=== PATIENT | female | born 1985 | race Two or more races ===

== ENCOUNTER 2019-05-16 22:17 | Inpatient (IN) | payer BC, SELFPAY ==
[2019-05-16] VITALS (27 sets, daily range): BP systolic 111–170; BP diastolic 63–116; PULSE 87–115; O2SAT 99–100; BMI 28.5
[2019-05-16] MEDS: LACTATED RINGERS 1,000 ML 125 ML IV CONT ×2 (22:39→23:01)
[2019-05-16 22:51] LABS: Basophils Percent Auto 0.3 % (0.2-1.2); Eosinophils Absolute Auto 0.1 K/mm3 (0-0.3); Eosinophils Percent Auto 0.5 % (0-4.4); Hematocrit 32.1 % (37.0-47.0); Hemoglobin 10.7 g/dL (12.0-15.0); Immature Granulocyte Absolute 0.16 K/mm3 (0.00-0.031); Immature Granulocyte Percent A 1.7 % (0-0.5); Lymphocytes Absolute Auto 1.71 K/mm3 (0.9-3.2); Mean Corpuscular HGB Conc 33.3 g/dl (32-36); Mean Corpuscular Hemoglobin 29.6 pg (26-34); Mean Corpuscular Volume 88.7 fl (80-100); Mean Platelet Volume 9.8 fl (7.4-10.4); Monocytes Absolute Auto 0.5 K/mm3 (0.1-0.6); Monocytes Percent Auto 5.7 % (2.6-8.5); Neutrophils Percent Auto 73.8 % (45.5-73.1); Platelet Count Result 230 k/mm3 (150-375); Red Blood Count 3.62 M/mm3 (4.2-5.4); Red Cell Distribution Width 13.6 % (11.5-14.5); White Blood Count 9.5 K/mm3 (4.5-10.0)
--- NOTE | 2019-05-16 23:02 | WPDANESEPP ---
Anes - Eval Pre Procedure Procedure: labor epidural Date/Time: 05/16/19 23:02 Surgeon: Harshad Moulton Preop Diagnosis: Abdominal pain with contractions Pre Op Diagnosis: contractions Patient Data Age: 33 Gender: F Height: 5 ft 1 in Weight: 68.5 kg Allergies Allergy/AdvReac Type Severity Reaction Status Date / Time No Known Allergies Allergy Verified 04/25/19 12:44 Home Medications Medication Instructions Recorded Confirmed Type PNV cmb#95-ferrous fumarate-FA 1 tablet PO DAILY 04/25/19 04/25/19 History [] Laboratory Tests 05/16/19 05/16/19 05/16/19 22:38 22:38 22:38 WBC 9.5 K/mm3 K/mm3 (4.5-10.0) RBC 3.62 M/mm3 L M/mm3 (4.2-5.4) Hgb 10.7 g/dL L g/dL (12.0-15.0) Hct 32.1 % L % (37.0-47.0) MCV 88.7 fl fl (80-100) MCH 29.6 pg pg (26-34) MCHC 33.3 g/dl g/dl (32-36) RDW 13.6 % % (11.5-14.5) Plt Count 230 k/mm3 k/mm3 (150-375) MPV 9.8 fl fl (7.4-10.4) Immature Gran % (Auto) 1.7 % H % (0-0.5) Neut % (Auto) 73.8 % H % (45.5-73.1) Lymph % (Auto) 18.0 % L % (18.3-44.2) Chambers % (Auto) 5.7 % % (2.6-8.5) Eos % (Auto) 0.5 % % (0-4.4) Baso % (Auto) 0.3 % % (0.2-1.2) Lymph # (Auto) 1.71 K/mm3 K/mm3 (0.9-3.2) Chambers # (Auto) 0.5 K/mm3 K/mm3 (0.1-0.6) Eos # (Auto) 0.1 K/mm3 K/mm3 (0-0.3) Baso # (Auto) 0.0 K/mm3 K/mm3 (0.0-0.1) Abs Immat Gran (auto) 0.16 K/mm3 H K/mm3 (0.00-0.031) Absolute Neuts (auto) 7.0 K/mm3 H K/mm3 (1.3-6.7) Absolute Nucleated RBC 0.0 K/mm3 K/mm3 (0.0-0.012) Nucleated RBC % 0.0 % % (0.0-0.2) RPR Pending Rubella IgG Antibody Pending Patient hx anesthesia problems: none Family hx anesthesia problems: none PMFSH Past Medical History Medical History Over weight hypertension Surgical History Surgical History (Updated 05/16/19 @ 23:04 by Steven Henao CRNA) Previous section Family History Family History Other Unknown family medical history Social History Social History Substance use: never Spiritual care concerns: No Exam Day of Procedure 05/16/19 23:02 Patient weight: overweight Airway: Mallampati scale class II Neurological: alert and oriented
[2019-05-16 23:41] LABS: Rubella IgG Antibody 19.4 IU/ML
--- NOTE | 2019-05-16 23:44 | LDADM ---
This patient, Brina Islas, was admitted to Labor/Delivery/Recovery 102 on 05/16/19 at 22:17. Plans for labor, pain management and were discussed with patient. Patient/family oriented to hospital policies and general routines including ID bracelet, bed and alarms, visiting hours, pain management, procedures, bathroom and other care routines, personal items, smoking policy, room service/diet and guest tray routines, infant security routines, and visiting hours. Patient/Family are encouraged to report perceived risks to care and to ask questions if they do not understand what they are told or what they should do. See OBIX for further documentation.
[2019-05-17] VITALS (68 sets, daily range): BP systolic 83–151; BP diastolic 47–113; PULSE 89–163; RESP 16–20; TEMP 36.7–37.4; O2SAT 95–100
--- NOTE | 2019-05-17 00:16 | PM.IMHP ---
H&P: HPI History of Present Illness Chief complaint: contractions Narrative: Brina Islas is a 33 year old female whose last menstrual is unknown, EDC is 05/24/2019 presents at 39 weeks gestation in active labor. Since previous section and has requested vaginal after risks and benefits were reviewed Review of Systems Review of Systems: All systems reviewed & are unremarkable except as noted in HPI and below PMFSH Past Medical History Medical History Over weight hypertension Surgical History Surgical History Previous section Family History Family History Other Unknown family medical history Social History Social History Smoking status: Never smoker Second hand tobacco smoke exposure: No Substance use: never Spiritual care concerns: No Meds Home Medications and Allergies Home Medications Medication Instructions Recorded Confirmed Type PNV cmb#95-ferrous fumarate-FA 1 tablet PO DAILY 04/25/19 04/25/19 History [] Allergies Allergy/AdvReac Type Severity Reaction Status Date / Time No Known Allergies Allergy Verified 04/25/19 12:44 Vital Signs Vital Signs - 24 hr 05/16/19 23:04 05/16/19 23:07 05/16/19 23:09 Pulse Rate 96 102 H Blood Pressure 140/116 H 140/79 Pulse Oximetry 100 100 05/16/19 23:11 05/16/19 23:13 05/16/19 23:14 Pulse Rate 87 96 Blood Pressure 130/71 153/88 H Pulse Oximetry 99 05/16/19 23:15 05/16/19 23:18 05/16/19 23:19 Pulse Rate 105 H 99 Blood Pressure 170/88 H 153/82 H Pulse Oximetry 100 05/16/19 23:20 05/16/19 23:22 05/16/19 23:24 Pulse Rate 101 H 101 H Blood Pressure 146/86 H 136/111 H Pulse Oximetry 100 05/16/19 23:25 05/16/19 23:28 05/16/19 23:29 Pulse Rate 109 H 107 H Blood Pressure 136/63 111/93 H Pulse Oximetry 100 05/16/19 23:30 05/16/19 23:33 05/16/19 23:34 Pulse Rate 99 115 H Blood Pressure 125/91 H 115/78 Pulse Oximetry 100 05/16/19 23:36 05/16/19 23:37 05/16/19 23:39 Pulse Rate 112 H 102 H Blood Pressure 114/78 132/76 Pulse Oximetry 100 05/16/19 23:40 05/16/19 23:44 05/16/19 23:45 Pulse Rate 106 H 104 H Blood Pressure 121/72 129/75 Pulse Oximetry 100 05/16/19 23:49 05/16/19 23:54 05/16/19 23:59 Pulse Rate Blood Pressure Pulse Oximetry 100 100 100 05/17/19 00:00 05/17/19 00:04 05/17/19 00:09 Pulse Rate 110 H Blood Pressure 120/74 Pulse Oximetry 100 100 05/17/19 00:14 05/17/19 00:15 Pulse Rate 105 H Blood Pressure 121/70 Pulse Oximetry 100 Exam Const: General: no acute distress Eyes: General: appearance normal, both eyes and all related structures Neck: Neck: supple and no JVD Thyroid: thyroid normal Resp: Effort & Inspection: normal respiratory effort Auscultation: clear to auscultation bilaterally Cardio: Rate: regular rate Rhythm: regular rhythm GI: Inspection: normal to inspection (Gravid uterus with contractions every 2-3 minutes) : General: Yes other (Cervix is complete. Artificial rupture membranes is clear. FHTs reassurin) Skin: General skin exam: no rashes or lesions noted Extrem: General: normal to inspection and no edema Psych: Mental Status: mental status grossly normal Affect: normal affect H&P: Results Labs Labs: Short CBC 05/16/19 Range/Units 22:38 WBC 9.5 (4.5-10.0) K/mm3 Hgb 10.7 L (12.0-15.0) g/dL Hct 32.1 L (37.0-47.0) % Plt Count 230 (150-375) k/mm3 Assessment and Plan Additional Plan Impression: Term in active labor with previous section Plan: in progress. Epidural was in place
[2019-05-17] MEDS: LORATADINE 10 MG TABLET PO (00:26)
--- NOTE | 2019-05-17 03:09 | PM.OBPNVD ---
OB - PN: Subj Subjective Date/time seen: 05/17/19 03:09 Interval history: pushing x 2 hours unable to get past pubic bone offered c section OB - PN: Obj Data Labs CBC & Chem 7: 05/16/19 22:38 Labs: Laboratory Results - last 24 hr 05/16/19 05/16/19 05/16/19 22:38 22:38 22:38 WBC 9.5 RBC 3.62 L Hgb 10.7 L Hct 32.1 L MCV 88.7 MCH 29.6 MCHC 33.3 RDW 13.6 Plt Count 230 MPV 9.8 Immature Gran % (Auto) 1.7 H Neut % (Auto) 73.8 H Lymph % (Auto) 18.0 L Sunflower % (Auto) 5.7 Eos % (Auto) 0.5 Baso % (Auto) 0.3 Lymph # (Auto) 1.71 Sunflower # (Auto) 0.5 Eos # (Auto) 0.1 Baso # (Auto) 0.0 Abs Immat Gran (auto) 0.16 H Absolute Neuts (auto) 7.0 H Absolute Nucleated RBC 0.0 Nucleated RBC % 0.0 Rubella IgG Antibody 19.4 Blood Type A Positive Antibody Screen Negative OB - PN A/P Time Spent With Patient Time: Total time spent is greater than 50% in coordination of care (as documented) at patient's floor/unit and/or counseling patient:
[2019-05-17] MEDS: ceFAZolin 2 GM/D5W 50 ML 2 GM/50 ML BAG IVPB (03:36)
--- NOTE | 2019-05-17 04:15 | PM.PROC ---
Procedure Note - Detailed Date of procedure: 05/17/19 Pre-op diagnosis: contractions Surgeon: Anthony Otero MD Postop diagnosis: Failure to descend Anesthesia: Epidural Q BL: 460cc Findings: Female 7 lb 5 oz nuchal cord x1 Complications: None Description of procedure: Repeat low-transverse section. The patient was prepped and draped in the normal sterile fashion placed in the supine position. Under excellent epidural anesthesia the abdomen was entered through the previous Pfannenstiel incision and progressive layers of fascia. Fascia was incised in upward outward fashion bilaterally. Underlying muscles sharply dissected and parietal peritoneum elevated by Anju clamps. This was entered by sharp dissection. A fair amount of scar tissue was seen in the bladder was noted to be riding very high. Careful dissection allowed the bladder to be dissected caudally away from the cervix an incision. Bladder blade was placed in the low transverse incision made. The head then delivered in the BALBINA position. Nuchal cord check noted to be loose x1 rubella occiput. The anterior posterior shoulder then delivered spontaneously. Cord clamped x2 and cut and passed table given 9 and 9. Placenta was delivered intact manually. Uterus delivered on the abdomen and wrapped in a moist towel. After assuring no membranes or debris remained in the uterus, the uterus was closed with continuous running locking 0 Vicryl from lateral edge to lateral edge. This was followed by a 2nd running imbricating 0 Vicryl from lateral edge to lateral edge. Hemostasis was assured. Ovaries and tubes appeared within normal limits. The uterus returned to the abdomen. Laps removed and accounted for. The hysterotomy incision inspected 1 last time and noted be hemostatic. The fascia was closed with continuous running 0 Vicryl from lateral edge to midline bilaterally. The skin closed with 4 O Monocryl and glue. All sponge, needle, instrument counts were correct. There were no immediate complications
--- NOTE | 2019-05-17 07:24 | OBPPTRN ---
Patient transferred to post room # 287 via stretcher. Support person present. Oriented to unit, room, information board, rooming in, admission packet and security measures. Patient verbalizes understanding.
[2019-05-17] MEDS: KETOROLAC 30 MG/ML VIAL (*BKC) (07:37)
--- NOTE | 2019-05-17 08:10 | PC.NURSE ---
Consulted with patient, mother reports she breastfed first child and would like a refresher with new . Reviewed infant feeding cues, frequencies, duration of feedings, feeding elimination flow sheet, and signs of adequate intake. Demonstrated stimulation techniques to wake infant for feeding. Assisted with infant to breast. Reviewed positioning/alignment in football, holding breast in C hold and guided asymmetrical latch on. Discussed rational for each. was able to latch correctly. nursed eagerly, with steady draws and frequent swallowing noted. Reviewed signs of a correct latch, effective nursing and suck swallow ratio. Infant was able to maintain latch without discomfort to mother. Infant sleepy with pausing noted. Advised to stimulate to keep infant awake and nursing effectively. Nipple care reviewed. Instructed mother to call out for RN assistance if she is unable to latch infant for feeding or she has discomfort with nursing. Instructed feeding should be initiated three hours from start of last feeding or if feeding cues are noted before. Mother voiced understanding of information shared.
[2019-05-17] MEDS: DEXTROSE 5%/0.45% SOD CHL 1,000 ML 125 ML IV CONT (08:51)
[2019-05-17 09:51] LABS: Rapid Plasma Reagin Non-Reactive (NonReactive)
[2019-05-17] MEDS: DOCUSATE SODIUM 100 MG CAPSULE PO (17:04)
[2019-05-18] MEDS: IBUPROFEN 600 MG TABLET PO ×3 (00:08→17:22)
[2019-05-18 05:32] LABS: Basophils Percent Auto 0.1 % (0.2-1.2); Eosinophils Percent Auto 0.2 % (0-4.4); Hemoglobin 7.4 g/dL (12.0-15.0); Immature Granulocyte Absolute 0.14 K/mm3 (0.00-0.031); Immature Granulocyte Percent A 1.6 % (0-0.5); Lymphocytes Absolute Auto 1.73 K/mm3 (0.9-3.2); Lymphocytes Percent Auto 20.1 % (18.3-44.2); Mean Corpuscular HGB Conc 32.2 g/dl (32-36); Mean Corpuscular Volume 90.2 fl (80-100); Monocytes Absolute Auto 0.5 K/mm3 (0.1-0.6); Monocytes Percent Auto 5.7 % (2.6-8.5); Neutrophils Absolute Auto 6.2 K/mm3 (1.3-6.7); Neutrophils Percent Auto 72.3 % (45.5-73.1); Platelet Count Result 155 k/mm3 (150-375); Red Blood Count 2.55 M/mm3 (4.2-5.4); White Blood Count 8.6 K/mm3 (4.5-10.0)
--- NOTE | 2019-05-18 06:46 | PM.OBPNVD ---
OB - PN: Subj Subjective Date/time seen: 05/18/19 06:46 Interval history: pushing x 2 hours unable to get past pubic bone offered c section Patient comments: no complaints and pain well controlled baby status: doing well and nursing well OB - PN: Obj Data Labs CBC & Chem 7: 05/18/19 04:36 Labs: Laboratory Results - last 24 hr 05/16/19 05/18/19 22:38 04:36 WBC 8.6 RBC 2.55 L Hgb 7.4 L D Hct 23.0 L MCV 90.2 MCH 29.0 MCHC 32.2 RDW 14.0 Plt Count 155 MPV 10.0 Immature Gran % (Auto) 1.6 H Neut % (Auto) 72.3 Lymph % (Auto) 20.1 [place] % (Auto) 5.7 Eos % (Auto) 0.2 Baso % (Auto) 0.1 L Lymph # (Auto) 1.73 [place] # (Auto) 0.5 Eos # (Auto) 0.0 Baso # (Auto) 0.0 Abs Immat Gran (auto) 0.14 H Absolute Neuts (auto) 6.2 Absolute Nucleated RBC 0.0 Nucleated RBC % 0.0 RPR Non-reactive OB - PN A/P Plan day: 1 Plan: routine care Comments: start iron Time Spent With Patient Time: Total time spent is greater than 50% in coordination of care (as documented) at patient's floor/unit and/or counseling patient: Time with patient: less than 15 minutes Review of Systems Review of Systems: All systems reviewed & are unremarkable except as noted in HPI and below Exam Const: General: no acute distress Eyes: General: appearance normal, both eyes and all related structures Neck: Neck: supple and no JVD Thyroid: thyroid normal Resp: Effort & Inspection: normal respiratory effort Auscultation: clear to auscultation bilaterally Cardio: Rate: regular rate Rhythm: regular rhythm GI: Inspection: normal to inspection and incision (cdi) Percussion: Yes normal to percussion Auscultation: normoactive bowel sounds : General: Yes bladder normal to palpation External Female Exam: normal external appearance Speculum Exam - Vagina: normal vaginal discharge and No vaginal bleeding Speculum Exam - Cervix: nontender Bimanual exam- vagina & uterus: bladder normal to palpation and No Cervical tenderness present OB/external & speculum: No vaginal bleeding Skin: General skin exam: no rashes or lesions noted Extrem: General: normal to inspection and no edema Psych: Mental Status: mental status grossly normal Affect: normal affect
[2019-05-18 07:00] VITALS: BP 119/78; PULSE 90; RESP 18; TEMP 36.6
[2019-05-18] MEDS: POLYSACCHARIDE IRON COMPLEX 150 MG CAPSULE PO ×2 (08:33→17:19)
[2019-05-18] MEDS: DOCUSATE SODIUM 100 MG CAPSULE PO ×2 (08:33→17:19)
[2019-05-18] MEDS: MULTIVIT/MIN/PREN/FOL AC/IRON TABLET 1 TAB PO (08:34)
--- NOTE | 2019-05-18 10:33 | WPDANLDPN2 ---
Anes-Prog Note L&D Date/Time: 05/18/19 10:33 Comfortable throughout: labor, delivery and section Neuraxial method: epidural Epidural/Spinal procedure site: clean & non-tender Neuro status: Neuro function grossly intact. Cardiovascular status: normal Respiratory status: normal Airway patency: baseline Mental status: baseline Post-Op hydration status: normal Vital Signs: Last Vital Signs Temp 36.6 C 05/18/19 07:00 Pulse 90 05/18/19 07:00 Resp 18 05/18/19 07:00 BP 119/78 05/18/19 07:00 Pulse Ox 100 05/17/19 17:00 I/O: Intake & Output 05/17/19 05/18/19 05/18/19 23:59 07:59 15:59 Intake Total 800 Output Total 950 Balance -150 Post-procedural complaints: none Patient feedback: Patient satisfied with anesthetic care.
--- NOTE | 2019-05-18 10:34 | WPDANLDNPN2 ---
Anes-Prog Note L&D-Neuraxial Date/Time: 05/18/19 10:34 Neuraxial medications: epidural PF morphine Opiod-related complaints: none Patient feedback: Patient satisfied with post-operative pain management.
[2019-05-18] MEDS: SIMETHICONE 80 MG TAB.CHEW PO ×2 (13:18→17:19)
--- NOTE | 2019-05-18 16:00 | PC.NURSE ---
PT introductions made and plan of care discussed per post op c section, pain management, breast feeding, daily care activities. PT verbalized understanding of such care.
[2019-05-18 22:54] VITALS: BP 123/74; PULSE 112; RESP 18; TEMP 36.7
[2019-05-19] MEDS: IBUPROFEN 600 MG TABLET PO ×2 (01:39→10:27)
[2019-05-19 08:10] VITALS: BP 120/77; PULSE 99; RESP 18; TEMP 36.7; O2SAT 100
--- NOTE | 2019-05-19 08:20 | PC.NURSE ---
Observed mother is able to independently latch with appropriate positioning/alignment. She denies any nipple discomfort, is feeding as required and waking infant to feed if needed. has had 9 effective feedings in the past 24 hours, and is currently meeting outcomes for weight, output, jaundice and feeding frequencies. Mother states she feels confident to continue effective at home. Reviewed transition to breast milk, signs of adequate intake, and engorgement/relief. Instructed to call ICP if intake/output less than required. Reviewed regular medications mother is taking. Information provided per [facility]. Reviewed community resources on the [facility] website and in the Mom/Baby guide. Information on outpatient services provided. Mother has no further questions at this time.
[2019-05-19] MEDS: BISACODYL 10 MG SUPPOSITORY RECTAL (08:26)
--- NOTE | 2019-05-19 09:29 | PM.DS ---
DS: Diagnosis Admitting Diagnosis Admitting Diagnosis: term/prev section DS: Summary Time Spent with Patient Time attestation: Total time spent providing and/or coordinating discharge services: Exam Const: General: no acute distress Eyes: General: appearance normal, both eyes and all related structures Neck: Neck: supple and no JVD Thyroid: thyroid normal Resp: Effort & Inspection: normal respiratory effort Auscultation: clear to auscultation bilaterally Cardio: Rate: regular rate Rhythm: regular rhythm GI: Inspection: non-distended GI Palp: Yes Soft to palpation, No Tenderness to palpation present (GI) and No Guarding due to palpation present (GI) Auscultation: normal bowel sounds : General: Yes bladder normal to palpation External Female Exam: normal external appearance Speculum Exam - Vagina: normal vaginal discharge and No vaginal bleeding Speculum Exam - Cervix: nontender Bimanual exam- vagina & uterus: bladder normal to palpation and No Cervical tenderness present OB/external & speculum: No vaginal bleeding Skin: General skin exam: no rashes or lesions noted Extrem: General: normal to inspection and no edema Psych: Mental Status: mental status grossly normal Affect: normal affect Discharge Plan Discharge Attending physician on discharge: Anthony Oteor Discharging Clinician: Anthony Otero Patient Disposition: Home, Self-Care Activity: may shower, no straining, may drive after 2 weeks and pelvic rest Diet: heart healthy Wound Care Instructions: follow printed instructions Patient Instructions: Antibiotic Form Stand Alone Forms: General Discharge Information Follow-up/Referrals: Anthony Otero MD [Physician] - Discharge Medications: New hydrocodone-acetaminophen [[place]] 5-325 mg tablet 1 tablet PO Q4H PRN (Reason: pain) Qty: 20 RF: 0 Continued PNV cmb#95-ferrous fumarate-FA [] 28 mg iron- 800 mcg Tablet 1 tablet PO DAILY RF: 0 Date of admission: 05/16/19 22:17 Primary Care Provider: Tra Llamas Admitting Provider: Anthony Otero Attending physician on admission: Anthony Otero
--- NOTE | 2019-05-19 09:30 | PM.OBPNVD ---
OB - PN: Subj Subjective Date/time seen: 05/19/19 09:30 OB - PN: Obj Data Labs CBC & Chem 7: 05/18/19 04:36 OB - PN A/P Plan day: 2 Plan: routine care, discharge home and follow up 6 weeks (4 weeks) Time Spent With Patient Time: Total time spent is greater than 50% in coordination of care (as documented) at patient's floor/unit and/or counseling patient: Time with patient: less than 15 minutes Review of Systems Review of Systems: All systems reviewed & are unremarkable except as noted in HPI and below Exam Const: General: no acute distress Eyes: General: appearance normal, both eyes and all related structures Neck: Neck: supple and no JVD Thyroid: thyroid normal Resp: Effort & Inspection: normal respiratory effort Auscultation: clear to auscultation bilaterally Cardio: Rate: regular rate Rhythm: regular rhythm GI: Inspection: non-distended GI Palp: Yes Soft to palpation, No Tenderness to palpation present (GI) and No Guarding due to palpation present (GI) Auscultation: normal bowel sounds : General: Yes bladder normal to palpation External Female Exam: normal external appearance Speculum Exam - Vagina: normal vaginal discharge and No vaginal bleeding Speculum Exam - Cervix: nontender Bimanual exam- vagina & uterus: bladder normal to palpation and No Cervical tenderness present OB/external & speculum: No vaginal bleeding Skin: General skin exam: no rashes or lesions noted Extrem: General: normal to inspection and no edema Psych: Mental Status: mental status grossly normal Affect: normal affect
[2019-05-19] MEDS: MULTIVIT/MIN/PREN/FOL AC/IRON TABLET 1 TAB PO (10:26)
[2019-05-19] MEDS: POLYSACCHARIDE IRON COMPLEX 150 MG CAPSULE PO (10:27)
[2019-05-19] MEDS: DOCUSATE SODIUM 100 MG CAPSULE PO (10:27)
--- NOTE | 2019-05-19 11:17 | PC.NURSE ---
Mom and baby's follow up appt. changed to 05/20/19 at 9:00. Pt. given copies of paperwork. Unable to change on Discharge Disposition intervention.
[2019-05-20 09:09] VITALS: BP 132/83; PULSE 93; RESP 16; TEMP 36.8
== END 2019-05-19 11:48 | disposition home or self-care (01) | DRG 788 ==
LOC: ANHLDR 05-17 04:19 → ANHOB2 05-17 07:23
PROVIDERS: Admitting Provider Obstetrics & Gynecology; PCP Internal Medicine; Visit Provider Obstetrics & Gynecology
PROC: 10D00Z1 Extraction of Products of Conception, Low, Open Approach (ICD-10-PCS; CPT 59514; principal; 2019-05-17 03:30)
DX: O34.211 Maternal care for low transverse scar from previous cesarean delivery (principal); Z37.0 Single live birth; Z3A.39 39 weeks gestation of pregnancy; O77.0 Labor and delivery complicated by meconium in amniotic fluid; O36.8330 Maternal care for abnormalities of the fetal heart rate or rhythm, third trimester, not applicable or unspecified; O69.81X0 Labor and delivery complicated by cord around neck, without compression, not applicable or unspecified
CPT/HCPCS: 36415; 85025; 86592; 86762; 86850; 86900; 86901; A9270; J0131; J0690; J1885; J2274; J2405; J2590; J2795; J3010; J7120

== ENCOUNTER 2020-02-09 09:23 | Outpatient (NON) | payer BC, SELFPAY ==
[2020-02-10 00:20] LABS: SARS-CoV-2 RNA PCR Negative
== END 2020-02-09 09:24 ==
PROVIDERS: PCP Internal Medicine; Visit Provider Family Medicine
DX: R68.89 Other general symptoms and signs (principal); Z20.828 Contact with and (suspected) exposure to other viral communicable diseases
CPT/HCPCS: 87635; C9803; U0003